=== PATIENT | female | born 1940 | race Caucasian/White ===

== ENCOUNTER 2021-04-06 06:36 | Day surgery (SDC) | payer MEDICARE ==
[2021-04-04 10:20] VITALS: BMI 29.7
[~2021-04-06 06:36] MED LIST: LACTATED RINGERS 1,000 ML IV SCH
[2021-04-06] MEDS ORDERED: LIDOCAINE 1% (10MG/ML) FOR IV START INTRADERMA ONE (07:30)
[2021-04-06 07:31] VITALS: RESP 16; TEMP 98.9
[2021-04-06 07:34] LABS: Glucose,Whole Blood 236 mg/dL (75-99)
--- NOTE | 2021-04-06 07:35 | P.GSHP ---
History of Present Illness H&P Date: 04/06/21 CHIEF COMPLAINT: GERD and colon screen HISTORY OF PRESENT ILLNESS: The patient is a 80-year-old female who presents with gastroesophageal reflux disease and need for colon screen. Upper and lower endoscopy were offered for further evaluation and management. PAST MEDICAL HISTORY: Please see list. PAST SURGICAL HISTORY: Please see list. MEDICATIONS: Please see list. ALLERGIES: Please see list. SOCIAL HISTORY: No illicit drug use FAMILY HISTORY: No reports of Crohn disease or ulcerative colitis. REVIEW OF ORGAN SYSTEMS: CONSTITUTIONAL: No reports of fevers or chills. GI: Denies any blood in stools or constipation. PHYSICAL EXAM: VITAL SIGNS: Stable GENERAL: Well-developed pleasant in no acute distress. HEENT: No scleral icterus. Extraocular movements grossly intact. Moist buccal mucosa. NECK: Supple without lymphadenopathy. CHEST: Unlabored respirations. Equal bilateral excursions. CARDIOVASCULAR: Regular rate and rhythm. Distal 2+ pulses. ABDOMEN: Soft, nondistended. MUSCULOSKELETAL: No clubbing, cyanosis, or edema. ASSESSMENT: 1. Gastroesophageal reflux disease 2. Colon screen. PLAN: 1. Recommend proceeding with an upper and lower endoscopy Past Medical History Past Medical History: Dementia, Hypertension, Thyroid Disorder History of Any Multi-Drug Resistant Organisms: None Reported Past Surgical History: Bowel Resection, Section, Cholecystectomy, Hysterectomy, Tonsillectomy Additional Past Surgical History / Comment(s): COLONOSCOPY/EGD Past Anesthesia/Blood Transfusion Reactions: No Reported Reaction Smoking Status: Never smoker - Past Family History Mother Family Medical History: No Reported History Medications and Allergies Home Medications Medication Instructions Recorded Confirmed Type Levothyroxine Sodium [Synthroid] 88 mcg PO DAILY 04/04/21 04/06/21 History Telmisartan 40 mg PO DAILY 04/04/21 04/06/21 History glipiZIDE [Glucotrol] 10 mg PO AC-BRKFST 04/04/21 04/06/21 History Allergies Allergy/AdvReac Type Severity Reaction Status Date / Time Latex, Natural Rubber Allergy Itching Verified 04/06/21 07:17 Surgical - Exam Vital Signs Temp Pulse Resp BP Pulse Ox 98.9 F 82 16 161/79 97 04/06/21 07:22 04/06/21 07:22 04/06/21 07:22 04/06/21 07:22 04/06/21 07:22 Results - Labs Abnormal Lab Results - Last 24 Hours (Table) 04/06/21 Range/Units 07:28 POC Glucose (mg/dL) 236 H (75-99) mg/dL
[2021-04-06] MEDS ORDERED: PROPOFOL 10 MG/ML 20 ML VIAL IV ONE (07:37)
[2021-04-06] MEDS ORDERED: LIDOCAINE 1% INJ 10MG/ML (20 ML MDV) ONE (07:37)
--- NOTE | 2021-04-06 08:29 | P.PCN ---
Date of Procedure: 04/06/21 Description of Procedure: PREOPERATIVE DIAGNOSIS: Personal history of colon polyps Family history malignant colon polyps Colonoscopy screening POSTOPERATIVE DIAGNOSIS: Tubular adenoma ileocecal valve/cecum OPERATION: Colonoscopy to the ileocecal valve and appendiceal orifice, cecum Colonoscopy with hot snare polypectomy Colonoscopy with cold forceps biopsy SURGEON: Davida Matias MD. ANESTHESIA: MAC. INDICATIONS: The patient is an 80-year-old female who presents family history of malignant colon polyps and personal history of colon polyps. Last colonoscopy over 5 years. Benefits and risks were described and informed consent was obtained. DESCRIPTION OF PROCEDURE: The patient had undergone Sutab prep. The patient had been brought into the operating room and laid in the left lateral decubitus position. After adequate intravenous sedation, the rectum was examined with 2% lidocaine jelly. No external hemorrhoids were encountered. The rectal tone was within normal limits. No lesions were palpated in the rectal vault. An Olympus colonoscope was advanced until the cecum, ileocecal valve and appendiceal orifice were clearly viewed. The prep was excellent. No sigmoid diverticulosis was encountered. Colonic polyps were found and removed. No evidence of focal colitis was found. Retroflexion of the scope demonstrated grade 2 internal hemorrhoids without active bleeding or inflammation. The colon was desufflated. The patient had tolerated the procedure well. Withdrawal time was over 6 minutes. FINDINGS: Aronchick preparation quality scale 1 (1-5) Internal hemorrhoids, grade 2 No external hemorrhoids No arteriovenous malformations. No sigmoid diverticulosis Removal of 1 polyp: - Cold forceps biopsy completed with snare polypectomy at the ileocecal valve, 5 mm tubulovillous adenoma polyp. No focal colitis. RECOMMENDATIONS: Repeat colonoscopy 5 years, 2025 Plan - Discharge Summary Discharge Rx Participant: No New Discharge Prescriptions: Continue Telmisartan 40 mg PO DAILY glipiZIDE [Glucotrol] 10 mg PO AC-BRKFST Levothyroxine Sodium [Synthroid] 88 mcg PO DAILY Discharge Medication List Levothyroxine Sodium [Synthroid] 88 mcg PO DAILY 04/04/21 [History] Telmisartan 40 mg PO DAILY 04/04/21 [History] glipiZIDE [Glucotrol] 10 mg PO AC-BRKFST 04/04/21 [History] Follow up Appointment(s)/Referral(s): Davida Matias MD [STAFF PHYSICIAN] - 04/13/21 Patient Instructions/Handouts: *Surgery [facility] - (Anesthesia) Endoscopy Discharge Instructions, Hiatal Hernia (DC), Colorectal Polyps (DC), Colonoscopy (DC) Activity/Diet/Wound Care/Special Instructions: Repeat colonoscopy in 5 years 2025 Discharge Disposition: HOME SELF-CARE
--- NOTE | 2021-04-06 08:36 | P.PCN ---
Date of Procedure: 04/06/21 Description of Procedure: PREOPERATIVE DIAGNOSIS: Gastroesophageal reflux disease. Hiatal hernia Epigastric abdominal pain POSTOPERATIVE DIAGNOSIS: Gastritis with bleeding Gastric ulcers with bleeding Duodenal adenoma Gastroesophageal reflux disease with erosive esophagitis Diaphragmatic hiatal hernia OPERATION: Esophagogastroduodenoscopy with biopsies along antrum. Esophagogastroduodenoscopy with hot snare polypectomy, duodenum SURGEON: Davida Matias MD ANESTHESIA: MAC. INDICATIONS: The patient is a 80-year-old female who presents with a history of reflux disease and hiatal hernia. Benefits and risks of the procedure were described. Informed consent was obtained. DESCRIPTION: The patient was brought into the endoscopy suite and laid in the left lateral decubitus position. An Olympus gastroscope was passed along the posterior oropharynx down to the distal esophagus where the squamocolumnar junction was encountered at 37 cm from the incisors. The stomach was entered and no bile reflux was found. Additional findings are listed below. Biopsies with cold forceps were obtained of the antrum. The first through third portion of the duodenum was examined with 1.5 cm tumor along the second portion of the duodenum resected with hot snare polypectomy. Retroflexion of the scope confirmed Hill grade 3 lower esophageal valve. The squamocolumnar junction demonstrated LA grade B erosive esophagitis. The stomach was desufflated. The patient tolerated the procedure well. FINDINGS: Squamocolumnar junction 37 cm from the incisors. Diaphragmatic hiatus at 40 cm. Hiatal hernia, 3 cm Hill grade 3 lower esophageal valve. LA grade B erosive esophagitis. 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
[2021-04-06 08:45] VITALS: BP 117/64; PULSE 62
== END 2021-04-06 09:25 | disposition home or self-care (01) ==
LOC: ORWHC2ENDO 06:36
PROVIDERS: ATTEND Surgery Plastic and Reconstructive Surgery
DX: K25.4 Chronic or unspecified gastric ulcer with hemorrhage (principal); D13.2 Benign neoplasm of duodenum; D12.0 Benign neoplasm of cecum; K21.00 Gastro-esophageal reflux disease with esophagitis, without bleeding; K31.7 Polyp of stomach and duodenum; K43.9 Ventral hernia without obstruction or gangrene; I10 Essential (primary) hypertension; E07.9 Disorder of thyroid, unspecified; E11.9 Type 2 diabetes mellitus without complications; Z79.84 Long term (current) use of oral hypoglycemic drugs; Z91.040 Latex allergy status; Z90.49 Acquired absence of other specified parts of digestive tract; Z80.0 Family history of malignant neoplasm of digestive organs; Z83.71 Family history of colonic polyps; F03.90 Unspecified dementia, unspecified severity, without behavioral disturbance, psychotic disturbance, mood disturbance, and anxiety
CPT/HCPCS: 88305; 45380; 45385; 43239; 43251; J2001; J2704